=== PATIENT | female | born 1960 | race Caucasian/White ===

== ENCOUNTER → 2024-11-19 11:12 | Outpatient (REF) | payer MEDICARE, BC, SELFPAY | LOC: RAD 11:12 | PROVIDERS: ATTENDING PHYSICIAN Internal Medicine | DX: R10.31 Right lower quadrant pain (principal); M25.50 Pain in unspecified joint | CPT/HCPCS: 73502 ==

== ENCOUNTER → 2025-01-08 11:20 | Outpatient (REF) | payer MEDICARE, BC, SELFPAY | LOC: MRI 3T 11:20 | PROVIDERS: ATTENDING PHYSICIAN Internal Medicine | DX: R10.31 Right lower quadrant pain (principal); M25.50 Pain in unspecified joint | CPT/HCPCS: 72148 ==